=== PATIENT | male | born 1995 | race Caucasian/White ===

== ENCOUNTER 2021-12-30 06:31 | Emergency (ER) | payer SELFPAY ==
[~2021-12-30] VITALS: Ht 175.3 cm; Wt 74.8 kg
--- NOTE | 2021-12-30 06:45 | NUR ---
TO ER BED 10. BIBS C/O FEELING WEAK AND ABOUT TO FAINT S/P TAKING OXYCODONE AND POSSIBLY FENTANYL. AAOX4. AMBULATORY. CONNECTED TO MONITOR. VSS. AWAITING MD SCRUGGS
--- NOTE | 2021-12-30 07:10 | NUR ---
Received thorough report from staff LUIS using SBAR method. All questions answered. Nothing pending on pt. No orders, pt set to be DCed home after presenting with a poss drug OD/reaction. At bedside for assessment, pt states that he is an addict with 2 weeks clean when he took what he thought was oxycontine, but what he thinks turned out to be fentenyl, he states that he had a weird drug reaction that was reminicent of fentenyl, for he very is familiar with the sensation of oxy and what he was feeling was not oxy. Pt states that the reaction has since past and that he feels much better. I informed him he will feel more and more sober as time passes. Pt has good color, temp and appearance, aaox4, lucid and completely with it, could answer quetions and follow commands. VSS, PE WNL. Good distal pulses x 4ext, NSR without ectopy of bedside monitor, RRR, normal s1s2 no m/r/g. Pt states that he is otherwise completely healthy with no med issues. Provided pt with some education regarding the neurophysiology of the addiction process and some information on resources available inthe area including NA, AA, april le[facility], ect. Pt acknowledged understanding of teaching. Denies any pain, sob, n/v, dizziness, anxiety or discomfort. Informed pt that he will be dced soon, and that we are just waiting for DC paperwork from [facility]. No s/sxof distress present.
[2021-12-30] MEDS ORDERED: NALO4SPR BNOSTRILS (07:35)
--- NOTE | 2021-12-30 08:10 | NUR ---
Gave pt dc instructions with [facility], pt confirmed understanding of aftercare. all questions answered. VSS, PE WNL, NAD. 107/65, 99%RA, 88bpm,16rpm. 0/10 pain. Pt walked out of dept with steady gait, no s/sx of intoxication, appeared completely clear headed and sober. No s/sxof distess present.
[2021-12-30 08:30] VITALS: BP 107/65
== END 2021-12-30 08:10 | disposition home or self-care (01) ==
LOC: ER 06:33
DX: F11.10 Opioid abuse, uncomplicated (principal); F17.200 Nicotine dependence, unspecified, uncomplicated; Z98.890 Other specified postprocedural states; Z79.899 Other long term (current) drug therapy